=== PATIENT | male | born 1995 | race Caucasian/White ===

== ENCOUNTER 2018-07-04 13:39 | Outpatient (CLI) | payer OTHER ==
[~2018-07-04 13:39] MED LIST: Iopamidol 370 76% 100 ML VIAL ONE
--- NOTE | 2018-07-04 14:31 | CT ---
FExam: Postcontrast soft tissue neck CT HISTORY: Left tonsillar swelling COMPARISON: None FINDINGS: The brain parenchyma is unremarkable Partial opacification of the right and to lesser extent left mastoid air cells. There is fullness of the nasopharynx due to adenoid tonsillar hypertrophy There is fullness in both palatine tonsils, left greater than right. There is associated narrowing of the aerodigestive tract. There is heterogeneous attenuation of the left tonsillar pillar may be due to areas of edema. There is a possible left peritonsillar abscess measuring 0.8 x 0.7 cm. No obvious masses in the oral cavity. Midline fatty prostate of the tongue is preserved. Epiglottis is of normal caliber. Preepiglottic fat is preserved. Supraglottic, glottic and subglottic larynx is patent No prevertebral soft tissue swelling Symmetric attenuation of the prostate and submandibular glands. Unremarkable thyroid gland Symmetric attenuation of the sternocleidomastoid muscles No evidence of lymphadenopathy by size, in the right neck. Mildly enlarged left level 5 lymph nodes measuring 0.7 x 0.9 and 0.8 x 1.4 cm. Cervical spine vertebral body height is maintained. No fracture. No evidence of high-grade central canal stenosis or high-grade foraminal narrowing. Evaluation is pop ited due to technique Upper mediastinum and lung apices are unremarkable No lytic or blastic lesions in the osseous structures IMPRESSION: 1. Hypertrophy of the lymphoid tissue in Waldeyer's ring which are presumed to be due to an infectiou s, or inflammatory process. Asymmetric fullness of the left palatine tonsil with a possible small/dev eloping peritonsillar abscess. 2. Upper normal left level 5 lymph nodes.
== END 2018-07-04 13:40 | disposition home or self-care (01) ==
LOC: BICCT 13:39
PROVIDERS: ATTEND Family Medicine
DX: R22.1 Localized swelling, mass and lump, neck (principal); R59.0 Localized enlarged lymph nodes; J35.8 Other chronic diseases of tonsils and adenoids
CPT/HCPCS: 70491; Q9967

== ENCOUNTER 2021-02-17 02:54 | Emergency (ER) | payer OTHER ==
[2021-02-17 04:47] LABS: HBSAB Concentration Less than 8.00 mIU/mL; HIV (1/2) Antibody/Antigen Non-Reactive (NonReactive); Hep B Surf AB Non-Reactive (NonReactive); Hep C IgG Ab Non-Reactive (NonReactive); Hep C Index 0.09 S/CO (0-0.79)
== END 2021-02-17 03:40 | disposition home or self-care (01) ==
LOC: ER/OP 02:54
DX: Z77.21 Contact with and (suspected) exposure to potentially hazardous body fluids (principal)
CPT/HCPCS: 36415; 86706; 86803; 87389; 99283